=== PATIENT | female | born 1995 | race Caucasian/White ===

== ENCOUNTER 2022-05-21 15:38 | Outpatient (CLI) | payer OTHER ==
[2022-05-22 06:10] LABS: HCV AB 0.1 s/co ratio (0.0-0.9); RPR Non Reactive (Non Reactive)
[2022-05-22 07:10] LABS: HBsAG SCREEN Negative (Negative); HIV SCREEN 4TH GENERATION Non Reactive (Non Reactive)
== END 2022-05-21 15:39 | disposition home or self-care (01) ==
LOC: LAB 15:38
PROVIDERS: ATTEND Nurse Practitioner Obstetrics & Gynecology
DX: Z11.3 Encounter for screening for infections with a predominantly sexual mode of transmission (principal)
CPT/HCPCS: 36415; 86592; 86803; 87340; 87389

== ENCOUNTER 2022-12-22 18:04 | Outpatient (CLI) | payer OTHER ==
[2022-12-24 04:09] LABS: HBsAG SCREEN Negative (Negative)
[2022-12-24 05:10] LABS: HCV AB <0.1 s/co ratio (0.0-0.9)
[2022-12-24 06:10] LABS: RPR Non Reactive (Non Reactive)
[2022-12-25 00:08] LABS: HIV SCREEN 4TH GENERATION Non Reactive (Non Reactive)
== END 2022-12-22 18:05 | disposition home or self-care (01) ==
LOC: LAB 18:04
PROVIDERS: ATTEND Nurse Practitioner Obstetrics & Gynecology
DX: Z11.3 Encounter for screening for infections with a predominantly sexual mode of transmission (principal)
CPT/HCPCS: 36415; 86592; 86803; 87340; 87389